=== PATIENT | male | born 1960 | race Caucasian/White ===

== ENCOUNTER 2017-12-20 14:52 | Emergency (ER) | payer BC ==
[~2017-12-20] VITALS: Ht 604 cm; Wt 88.7 kg
[2017-12-20] MEDS ORDERED: METH-360 PO (16:19)
[2017-12-20] MEDS ORDERED: NAPR-56 PO (16:19)
[2017-12-20] MEDS ORDERED: ketorolac tromethamine 15mg/ml inj. IM ONE (16:20)
[2017-12-20] MEDS ORDERED: LORazepam 1 MG tablet PO ONE (18:35)
[2017-12-20] MEDS ORDERED: HYDROcodone/acetaminophen 10/325mg tab PO ONE (18:35)
[2017-12-20] MEDS ORDERED: LIDOcaine 1.5% w/epinephrine 1:200,000 5ml ampul IJ ONE (19:15)
[2017-12-20] MEDS ORDERED: HYDR-565 PO (21:13)
[2017-12-20 22:15] VITALS: BP 154/99
== END 2017-12-20 22:18 | disposition home or self-care (01) ==
LOC: ER 14:54
DX: S27.0XXA Traumatic pneumothorax, initial encounter (principal); S50.311A Abrasion of right elbow, initial encounter; S50.811A Abrasion of right forearm, initial encounter; S60.811A Abrasion of right wrist, initial encounter; S40.211A Abrasion of right shoulder, initial encounter; Z79.899 Other long term (current) drug therapy; V29.9XXA Motorcycle rider (driver) (passenger) injured in unspecified traffic accident, initial encounter; Y93.89 Activity, other specified; Y99.8 Other external cause status; Y92.410 Unspecified street and highway as the place of occurrence of the external cause
CPT/HCPCS: 32551; 71045; 71101; 71250; 96372; 99285; A6258; J1885; J3490

== ENCOUNTER 2017-12-22 19:13 | Emergency (ER) | payer BC ==
[~2017-12-22] VITALS: Ht 182.9 cm; Wt 89.1 kg
[~2017-12-22 19:13] MED LIST: HYDR-565 PO; METH-360 PO; NAPR-56 PO
[2017-12-22 20:12] VITALS: BP 140/76
== END 2017-12-22 19:40 | disposition home or self-care (01) ==
LOC: ER 19:13
DX: Z46.82 Encounter for fitting and adjustment of non-vascular catheter (principal)
CPT/HCPCS: 71046; 99284; A6222; A6257